=== PATIENT | female | born 1935 | race Caucasian/White ===

== ENCOUNTER → 2017-10-25 | Outpatient (CLI) | payer MEDICARE ==
[2014-07-28 15:39] VITALS: BP 165/82
[~2017-10-25] MED LIST: ALEVE220 MG PO; CALCIUM1 TAB PO
== END ==
LOC: RAD 15:04
DX: M85.89 Other specified disorders of bone density and structure, multiple sites (principal)

== ENCOUNTER → 2019-06-28 | Outpatient (CLI) | payer MEDICARE ==
[2014-07-28 15:39] VITALS: BP 165/82
== END ==
LOC: MAMMO 12:15
DX: R92.8 Other abnormal and inconclusive findings on diagnostic imaging of breast (principal)

== ENCOUNTER → 2019-06-28 | Outpatient (CLI) | payer MEDICARE ==
[2014-07-28 15:39] VITALS: BP 165/82
== END ==
LOC: MAMMO 13:53
DX: R92.8 Other abnormal and inconclusive findings on diagnostic imaging of breast (principal)

== ENCOUNTER → 2020-05-19 | Outpatient (CLI) | payer MEDICARE ==
[2014-07-28 15:39] VITALS: BP 165/82
== END ==
LOC: MAMMO 13:25
DX: Z13.820 Encounter for screening for osteoporosis (principal); M85.852 Other specified disorders of bone density and structure, left thigh

== ENCOUNTER → 2022-06-25 | Outpatient (CLI) | payer MEDICARE | LOC: RAD 08:45 → MAMMO 09:00 | DX: M85.89 Other specified disorders of bone density and structure, multiple sites (principal) ==

== ENCOUNTER → 2022-08-16 | Outpatient (CLI) | payer MEDICARE | LOC: RAD 15:15 | DX: M41.9 Scoliosis, unspecified (principal); M43.9 Deforming dorsopathy, unspecified ==